=== PATIENT | female | born 1955 | race Caucasian/White ===

== ENCOUNTER 2018-07-29 00:08 | Emergency (ER) | payer BC ==
[~2018-07-29] VITALS: Ht 167.6 cm; Wt 72.6 kg
[2018-07-29 00:08] VITALS: BP_SYST 162
--- NOTE | 2018-07-29 00:08 | NUR ---
0008 - Patient to ER bed 1 to gown for evaluation. Side rails up.
--- NOTE | 2018-07-29 00:10 | NUR ---
0010 - Assumed care of pt. PT states she woke up about 10 minutes ago feeling "not well", states she feels "my chest is going to explode". Pt is severely anxious, hx of anxiety and depression. Pt states that she was given an herb to take by her accupuncturist on , and did not ask about possible drug interaction. A&OX4. spouse at bedside. BP is hypertensive
--- NOTE | 2018-07-29 00:10 | NUR ---
0010 - ER at bedside examining patient.
[2018-07-29] MEDS ORDERED: NACL 0.9% 1,000 ML IV ONE ×2 (00:21→00:30)
[2018-07-29] MEDS ORDERED: LORazepam 2 MG/ML VIAL (FOR ER USE) IVP ONE (00:30)
[2018-07-29] MEDS ORDERED: ASPIRIN 81 MG TAB.CHEW PO ONE (00:30)
[2018-07-29] MEDS ORDERED: PANTOPRAZOLE SODIUM 40 MG/VIAL (PROTONIX) IVP ONE (00:30)
[2018-07-29 00:42] LABS: BASOPHILS % (AUTO) 0.6 % (0.0-2.0); EOSINOPHILS # (AUTO) 0.1 K/uL (0.0-0.4); EOSINOPHILS % (AUTO) 1.8 % (0.0-4.0); HEMATOCRIT 41.3 % (36-48); HEMOGLOBIN 13.4 g/dL (12.0-16.0); LYMPHOCYTES # (AUTO) 2.4 K/uL (1.0-5.5); MEAN CORPUSCULAR HEMOGLOBIN 29 pg (27-31); MEAN CORPUSCULAR HGB CONC 33 % (32-36); MEAN CORPUSCULAR VOLUME 90 fL (79.0-98.0); MONOCYTES # (AUTO) 0.6 K/uL (0.0-1.0); MONOCYTES % (AUTO) 10.7 % (1.7-9.3); NEUTROPHILS # (AUTO) 2.9 K/uL (1.8-7.7); NEUTROPHILS % (AUTO) 47.9 % (40.0-70.0); PLATELET COUNT (AUTO) 310 K/uL (130-430); RED BLOOD CELL COUNT(AUTO) 4.61 MIL/uL (4.2-6.2); RED CELL DISTRIBUTION WIDTH 13.6 % (9.0-15.0); WHITE BLOOD COUNT (AUTO) 6.1 K/uL (4.8-10.8)
[2018-07-29 00:50] LABS: ANION GAP 8 (5-15); CALCIUM 9.2 mg/dL (8.4-11.0); CHLORIDE 103 mmol/L (98-107); CREATININE 0.82 mg/dL (0.55-1.30); GLUCOSE 115 mg/dL (70-99); POTASSIUM 3.2 mmol/L (3.5-5.1); SODIUM SERUM 141 mmol/L (136-145); UREA NITROGEN, BLOOD 12 mg/dL (8-21)
[2018-07-29 00:53] LABS: GFR AFRICAN AMERICAN 90 mL/min (>90)
[2018-07-29 01:02] LABS: ALANINE AMINOTRANSFERASE 20 U/L (12-78); ALBUMIN 3.6 g/dL (3.4-4.8); ASPARTATE AMINOTRANSFERASE 20 U/L (10-37); TOTAL BILIRUBIN 0.3 mg/dL (0.0-1.0)
[2018-07-29] MEDS ORDERED: POTASSIUM CHLORIDE 20 MEQ TAB.PRT.SR PO ONE (01:15)
--- NOTE | 2018-07-29 01:30 | NUR ---
0130 - Pt in no distress. Resting comfortably, resp even and unlabored. Will continue to monitor.
--- NOTE | 2018-07-29 02:55 | NUR ---
0255 - Pt feeling much better, to be discharged. VSS.
--- NOTE | 2018-07-29 03:08 | NUR ---
0308 - Patient given written and verbal discharge instructions and verbalizes understanding. ER MD discussed with patient the results and treatment provided. Patient in stable condition. ID arm band removed. Patient educated on pain management and to follow up with PMD. Opportunity for questions provided and answered. Medication side effect fact sheet provided. A&OX4, ambulatory w/ steady gait.
[2018-07-29 03:09] VITALS: BP_SYST 125
== END 2018-07-29 03:08 | disposition home or self-care (01) ==
LOC: SED 00:08
DX: F41.0 Panic disorder [episodic paroxysmal anxiety] (principal); K21.9 Gastro-esophageal reflux disease without esophagitis; F32.9 Major depressive disorder, single episode, unspecified; Z88.8 Allergy status to other drugs, medicaments and biological substances; R03.0 Elevated blood-pressure reading, without diagnosis of hypertension
CPT/HCPCS: 36415; 71045; 80053; 84484; 85025; 93005; 96374; 96375; 99284; C9113; J2060; J7030